=== PATIENT | male | born 1960 | race Caucasian/White ===

== ENCOUNTER → 2017-04-27 | Outpatient (CLI) | payer BC ==
[~2017-04-27] VITALS: Ht 170.2 cm; Wt 81.6 kg
[~2017-04-27] MED LIST: AMBIEN CR12.5 MG PO; AMLODIPINE BESY10 MG PO; GLUCOPHAGE1000 MG PO; HEALTHY HEART1 EAC1 PO; LISINOPRIL40 MG PO; NEXIUM40 MG PO; ONE DAILY FOR1 EAC2 PO; PERCOCET 10/1 TABLET PO; PROTONIX40 MG PO; TRESIBA FL100 UNIT/1 SC; XANAX0.5 MG PO
[2017-04-27 10:34] LABS: POINT-OF-CARE METER ID UU14174212
[2017-04-27 10:43] LABS: HEMATOCRIT 38.4 % (38.0-50.0); MCH 31.5 PG (29.0-34.0); MCHC 34.6 G/DL (30.0-36.0); MEAN PLAT.VOLUME 9.3 uM^3 (9.0-12.4); PLATELET COUNT 154 K/uL (156-360); RBC DIS.WIDTH-CV 12.7 % (11.8-14.6); RED BLOOD COUNT 4.22 M/uL (4.00-5.50); WHITE BLOOD COUNT 6.1 K/uL (4.1-10.2)
[2017-04-27 10:56] LABS: INTER. NORMALIZED RATIO 1.3; PROTHROMBIN TIME 14.1 SEC (10.2-12.9)
[2017-04-27 10:59] LABS: PTT 29.4 SEC (25-37)
== END | disposition home or self-care (01) ==
LOC: EDSTATUS 10:00 → OPR 10:00
PROVIDERS: Internal Medicine
PROC: 07B73ZX Excision of Thorax Lymphatic, Percutaneous Approach, Diagnostic (ICD-10-PCS; principal; 2017-04-27)
DX: C77.1 Secondary and unspecified malignant neoplasm of intrathoracic lymph nodes (principal); C25.9 Malignant neoplasm of pancreas, unspecified; Z80.0 Family history of malignant neoplasm of digestive organs; Z80.1 Family history of malignant neoplasm of trachea, bronchus and lung; Z80.42 Family history of malignant neoplasm of prostate; E11.9 Type 2 diabetes mellitus without complications; I10 Essential (primary) hypertension; R91.8 Other nonspecific abnormal finding of lung field; Z87.891 Personal history of nicotine dependence; Z88.0 Allergy status to penicillin
CPT/HCPCS: 71010; 77012; 82948; 85027; 85610; 85730; 88305; 88341 TC; 88342 TC; J3010